=== PATIENT | female | born 1980 | race Hispanic/Latino ===

== ENCOUNTER 2019-01-26 13:13 | Outpatient (CLI) | payer OTHER ==
--- NOTE | 2019-01-26 14:29 | ULT ---
OB ULTRASOUND: Date: 01/26/19 HISTORY: Size and dates. FINDINGS: Real-time imaging of the pelvis shows a single, viable intrauterine in a breech presentatio n. Cervical canal length is 4.1 cm. Amniotic fluid is adequate for this stage of . The amnio tic fluid index is 14. The placenta is posterior in location without evidence of previa. Review of anatomy showed normal appearing head, cerebellum, ventricles, 4 chamber heart, stomac h, kidneys, cord insertion, bladder, spine, extremities, and 3 vessel cord. measurements are as follows: BPD: 5.3 cm, 22 weeks/0 days HC: 20 cm, 22 weeks/0 days AC: 16.7 cm, 21 weeks/4 days FL: 3.8 cm, 22 weeks/0 days IMPRESSION: 1. Single viable intrauterine in breech presentation. Overall measurements corresponding t o a gestational age of 21 weeks/6 days. Estimated date of delivery 06/02/2019. 2. Placenta which is posterior in location without evidence of previa. POS: [facility]
== END 2019-01-26 13:14 | disposition home or self-care (01) ==
LOC: NAV ULT 13:13
PROVIDERS: ATTEND Family Medicine
DX: O09.522 Supervision of elderly multigravida, second trimester (principal); Z3A.21 21 weeks gestation of pregnancy
CPT/HCPCS: 76805